=== PATIENT | male | born 1945 | race Caucasian/White ===

== ENCOUNTER 2019-08-21 12:46 | Inpatient (IN) ==
[2019-08-21] MEDS ORDERED: Acetaminophen 325 MG TABLET PO PRN (14:42)
[2019-08-21] MEDS ORDERED: Naloxone 0.4 MG/ML INJ IVP PRN (14:42)
[2019-08-21] MEDS ORDERED: MOM Conc 10 ML UD.LIQ PO PRN (14:42)
[2019-08-21] MEDS ORDERED: Ondansetron ODT 4 MG TAB.RAPDIS SL PRN (14:42)
[2019-08-21 16:51] LABS: Albumin 4.2 g/dL (3.5-5.7); Calcium 9.4 mg/dL (8.6-10.3); Phosphorous 4.4 mg/dL (2.7-4.5)
[2019-08-21] MEDS: 0.9 % Sodium Chloride 1,000 ML IVC SCH (18:37)
[2019-08-21] MEDS ORDERED: *HR* Heparin 5,000 UNIT/ML VIAL SQ SCH (22:00)
[2019-08-22] MEDS: Mag Hydrox/Al Hydrox/Simeth 30 ML UDC PO PRN (05:34)
[2019-08-22 05:51] LABS: Hematocrit 36.9 % (37.5-50.1); Hemoglobin 12.2 g/dL (12.9-16.9); Mean Corpuscular HGB Conc 33.1 g/dL (31.6-35.5); Mean Corpuscular Hemoglobin 29.8 pg (28.0-33.3); Mean Platelet Volume 9.1 fL (9.4-12.4); Platelet Count 249 K/mcL (140-400); Red Cell Distribution Width 13.7 % (11.5-14.5); White Blood Count 6.9 K/mcL (4.3-11.1)
[2019-08-22 06:18] LABS: Calcium 9.3 mg/dL (8.6-10.3); Phosphorous 2.9 mg/dL (2.7-4.5); Potassium 5.4 mEq/L (3.5-5.1)
[2019-08-22] MEDS ORDERED: Calcium Gluconate 1gm/50mL 1 GM/50 ML BAG IVPB ONE (08:31)
[2019-08-22] MEDS: 0.9 % Sodium Chloride 1,000 ML IVC SCH (09:01)
[2019-08-22] MEDS: Simethicone 80 MG TAB.CHEW PO PRN (17:43)
[2019-08-23 04:49] LABS: Hematocrit 34.1 % (37.5-50.1); Hemoglobin 11.8 g/dL (12.9-16.9); Mean Corpuscular HGB Conc 34.6 g/dL (31.6-35.5); Mean Corpuscular Hemoglobin 29.6 pg (28.0-33.3); Mean Corpuscular Volume 85.7 fL (83.0-100.0); Mean Platelet Volume 8.9 fL (9.4-12.4); Platelet Count 248 K/mcL (140-400); Red Blood Count 3.98 M/mcL (4.19-5.50); Red Cell Distribution Width 13.6 % (11.5-14.5); White Blood Count 7.7 K/mcL (4.3-11.1)
[2019-08-23 05:07] LABS: BUN/Creatinine Ratio 20 (6-26); Blood Urea Nitrogen 23 mg/dL (8-23); Carbon Dioxide 21 mEq/L (23-29); Chloride 104 mEq/L (98-107); Glucose 115 mg/dL (70-105); Osmolality,Calculated 285 (280-300); Potassium 4.1 mEq/L (3.5-5.1); Sodium 135 mEq/L (136-145); eGFR For African Americans > 60 (> 60); eGFR For Non-African Americans > 60 (> 60)
[2019-08-23] MEDS: Simethicone 80 MG TAB.CHEW PO PRN (05:28)
[2019-08-23 06:56] VITALS: BP 117/76
[2019-08-23] MEDS: Mag Hydrox/Al Hydrox/Simeth 30 ML UDC PO PRN (07:58)
== END 2019-08-23 11:09 | disposition home or self-care (01) | DRG 684 ==
LOC: SUATTDRO 14:10 → 3ANU 14:10
PROVIDERS: ADMIT Internal Medicine; ATTEND Internal Medicine